=== PATIENT | male | born 1950 | race Hispanic/Latino ===

== ENCOUNTER 2018-03-03 08:26 | Emergency (ER) | payer BC, OTHER ==
[2018-03-03] MEDS ORDERED: NACL 0.9% 1000 ML 1,000 ML IV ONE (09:19)
--- NOTE | 2018-03-03 09:19 | Emergency Department Report ---
ED General Adult HPI - General Chief complaint: Abdominal Pain Stated complaint: ABD PAIN Time Seen by Provider: 03/03/18 09:14 Source: patient, RN notes reviewed Mode of arrival: Ambulatory Limitations: No Limitations - History of Present Illness Initial comments: This is a 68-year-old male. The patient is previously known to this provider. His primary care doctor is Dr. Burroughs. He has a past medical history of hypertension and renal colic. He presents to the ER with a complaint of left lower quadrant pain that radiates to the flank which has been intermittent for about a month. The pain has no exacerbating or relieving factors. Patient denies nausea, vomiting, diarrhea, testicular pain, urinary symptoms. Initially requested Toradol for pain, although Really not having pain. Has not had a colonoscopy at this time. -: Gradual Location: abdomen Radiation: back Quality: aching Consistency: intermittent Improves with: none Worsens with: none Associated Symptoms: other (as per history of present illness). denies: confusion, chest pain, cough, diaphoresis, fever/chills, headaches, loss of appetite, malaise, nausea/vomiting, rash, seizure, shortness of breath, syncope , weakness - Related Data Home Medications Medication Instructions Recorded Confirmed Last Taken Famotidine [Pepcid] 20 mg PO PRN PRN 08/17/14 08/24/14 08/23/14 Tramadol HCl 50 mg PO DAILY PRN 08/17/14 08/24/14 08/23/14 Previous Rx's Medication Instructions Recorded Last Taken Type Acetaminophen [Tylenol Arthritis] 650 mg PO Q6HR PRN #30 tablet.er 03/03/18 Unknown Rx Ibuprofen [Motrin] 600 mg PO Q8H PRN #30 tablet 03/03/18 Unknown Rx Ondansetron [Zofran Odt] 4 mg PO Q8HR PRN #20 tab.rapdis 03/03/18 Unknown Rx Allergies Allergy/AdvReac Type Severity Reaction Status Date / Time Latex, Natural Rubber Allergy Intermediate Rash Verified 08/24/14 18:11 doxycycline AdvReac Unknown Verified 03/03/18 08:40 ED Review of Systems ROS: Stated complaint: ABD PAIN Other details as noted in HPI Comment: as per history of present illness Gastrointestinal: abdominal pain Genitourinary: denies: urgency, dysuria, testicular pain ED Past Medical Hx - Past Medical History Hx Hypertension: No Hx Heart Attack/AMI: No Hx Congestive Heart Failure: No Hx Diabetes: No Hx GERD: Yes Hx Renal Disease: (kidney stones) Hx Seizures: No Hx Asthma: No Hx COPD: No Additional medical history: peptic ulcers - Surgical History Past Surgical History?: Yes Additional Surgical History: C spine - Social History Smoking Status: Current Every Day Smoker Substance Use Type: None - Medications Home Medications: Home Medications Medication Instructions Recorded Confirmed Last Taken Type Famotidine [Pepcid] 20 mg PO PRN PRN 08/17/14 08/24/14 08/23/14 History Tramadol HCl 50 mg PO DAILY PRN 08/17/14 08/24/14 08/23/14 History Acetaminophen [Tylenol Arthritis] 650 mg PO Q6HR PRN #30 tablet.er 03/03/18 Unknown Rx Ibuprofen [Motrin] 600 mg PO Q8H PRN #30 tablet 03/03/18 Unknown Rx Ondansetron [Zofran Odt] 4 mg PO Q8HR PRN #20 tab.rapdis 03/03/18 Unknown Rx ED Physical Exam - General Limitations: No Limitations General appearance: alert, in no apparent distress - Head Head exam: Present: atraumatic, normocephalic - Eye Eye exam: Present: normal appearance, EOMI. Absent: nystagmus - ENT ENT exam: Present: normal exam, normal orophraynx, mucous membranes moist, normal external ear exam - Neck Neck exam: Present: normal inspection, full ROM - Respiratory Respiratory exam: Present: normal lung sounds bilaterally. Absent: respiratory distress - Cardiovascular Cardiovascular Exam: Present: regular rate, normal rhythm, normal heart sounds. Absent: bradycardia, tachycardia, irregular rhythm, systolic murmur, diastolic murmur, rubs, gallop - GI/Abdominal GI/Abdominal exam: Present: soft, normal bowel sounds. Absent: distended, tenderness, guarding, rebound, rigid, pulsatile mass - Rectal Rectal exam: Present: deferred - exam: Present: normal inspection. Absent: testicular tenderness External exam: Present: normal external exam, other (there is no testicular tenderness. There is normal testicular lie bilaterally. There is normal cremasteric reflex bilaterally.). Absent: erythema, swelling - Extremities Exam Extremities exam: Present: normal inspection, full ROM, normal capillary refill. Absent: tenderness, pedal edema, joint swelling, calf tenderness - Back Exam Back exam: Present: normal inspection, full ROM. Absent: tenderness, CVA tenderness (R), paraspinal tenderness, vertebral tenderness - Neurological Exam Neurological exam: Present: alert, oriented X3, CN II-XII intact, normal gait, other (Extraocular movements intact. Tongue midline. No facial droop. Facial sensation intact to light touch in the V1, V2, V3 distribution bilaterally. 5 and 5 strength in 4 extremities.. Sensation is intact to light touch in 4 extremities.). Absent: motor sensory deficit - Psychiatric Psychiatric exam: Present: normal affect, normal mood - Skin Skin exam: Present: warm, dry, intact, normal color. Absent: rash ED Course Vital Signs 03/03/18 08:36 Temperature 97.7 F Pulse Rate 73 Blood Pressure 183/88 O2 Sat by Pulse 98 Oximetry ED Medical Decision Making - Lab Data Result diagrams: 03/03/18 09:00 03/03/18 09:00 Vital Signs 03/03/18 08:36 Temperature 97.7 F Pulse Rate 73 Blood Pressure 183/88 O2 Sat by Pulse 98 Oximetry - Radiology Data Radiology results: report reviewed CT scan of the abdomen and pelvis with IV contrast demonstrates no acute disease , no hydronephrosis, no ureteral stones, incidental kidney stones noted within the kidney parenchyma. - Medical Decision Making Differential diagnosis, including not limited to: Renal colic, hernia, constipation, malignancy, AAA Assessment and plan: 68-year-old male with nontraumatic left lower quadrant pain for one month. He is afebrile with reassuring vital signs with the exception of elevated blood pressure. He has no pulsatile abdominal mass, and a normal testicular exam, and he is reading a book comfortably without difficulty. His urinalysis is unremarkable, and a CT scan of the abdomen and pelvis did not demonstrate any significant disease. His elevated blood pressure is appreciated , please reference the [employer] clinical policy on asymptomatic hypertension. He needs to follow up with an outpatient lightout examiner for colonoscopy, and he is to follow-up with her primary care doctor for his elevated blood pressure. Critical care attestation.: If time is entered above; I have spent that time in minutes in the direct care of this critically ill patient, excluding procedure time. ED Disposition Clinical Impression: Elevated blood pressure reading, Lower abdominal pain Disposition: DC-01 TO HOME OR SELFCARE Is pt being admited?: No Does the pt Need Aspirin: No Condition: Stable Instructions: Abdominal Pain (ED) Additional Instructions: Continue current outpatient medications. The patient takes metformin, do not take metformin for the next 2 days. Take the pain medication, nausea medication as needed/directed. Please note that blood pressure was elevated. Follow-up with a primary care doctor for this within the next month. Long-term complications of hypertension and elevated blood pressure include stroke, heart attack, disability, , paralysis, loss of quality of life. Follow-up with a lightout examiner within the next month to have a colonoscopy scheduled. Not following up as recommended for a colonoscopy may result in undiagnosed tumor, cancer, malignancy. Return to the ER right away with new pain, worsened pain, migration of pain, fevers, chills, lethargy, irritability, projectile vomiting, change in mental status, confusion, inability to tolerate liquid feeds. Dr. Landaverde is a local gastroenterology specialist. Have a primary care doctor contact the medical records department to obtain formal CAT scan interpretation and to follow up on any incidental nonemergent findings. Referrals: KADEN SILVA MD [Primary Care Provider] - 3-5 Days SONNY ZEE MD [Staff Physician] - 3-5 Days ELSY LANDAVERDE MD [Staff Physician] - 3-5 Days
[2018-03-03 09:30] LABS: Basophils % (Auto) 0.1 % (0.0-1.8); Eosinophils # (Auto) 0.2 K/mm3 (0.0-0.4); Eosinophils % (Auto) 2.5 % (0.0-4.3); Hemoglobin 17.2 gm/dl (11.8-15.2); Lymphocytes % (Auto) 31.6 % (13.4-35.0); Mean Corpuscular HGB Conc 34 % (32-34); Mean Corpuscular Hemoglobin 31 pg (28-32); Mean Corpuscular Volume 92 fl (84-94); Monocytes # (Auto) 0.6 K/mm3 (0.0-0.8); Monocytes % (Auto) 5.9 % (0.0-7.3); Platelet Count 233 K/mm3 (140-440); Red Blood Count 5.58 M/mm3 (3.65-5.03); Red Cell Distribution Width 13.7 % (13.2-15.2)
[2018-03-03 09:34] LABS: Bacteria,Urine 1+ /HPF (Negative); Bilirubin,Urine NEG (Negative); Blood,Urine NEG (Negative); Color,Urine Yellow (Yellow); Mucus,Urine 2+ /HPF; Protein,Urine <15 mg/dL mg/dL (Negative); Urobilinogen,Urine < 2.0 mg/dL (<2.0)
[2018-03-03 09:37] LABS: Alanine Aminotransferase 46 units/L (7-56); Albumin 3.8 g/dL (3.9-5); BUN/Creatinine Ratio 19; Blood Urea Nitrogen 15 mg/dL (9-20); Calcium 9.3 mg/dL (8.4-10.2); Hemolysis Index 37
[2018-03-03] MEDS ORDERED: TORADOL ONE (11:24)
[2018-03-03] MEDS ORDERED: TORADOL IV ONE (11:25)
[2018-03-03 11:34] VITALS: BP 197/90
--- NOTE | 2018-03-06 13:02 | Cat Scan Report ---
CT ABDOMEN PELVIS WITH CONTRAST: HISTORY: Left lower quadrant pain, left flank pain. COMPARISON: none. TECHNIQUE: Helical CT in 1.25mm intervals following IV contrast. Sagittal and coronal reconstructions. FINDINGS: Lung bases: Adequately aerated. Mild emphysematous changes are suspected. Liver: Mild fatty infiltration. No enlargement, surface nodularity or focal lesion. Biliary system: Normal. Pancreas: Normal. Spleen: Normal. Kidneys/ureters/bladder: There are multiple nonobstructing calyceal stones in both kidneys. No ureteral stones or hydronephrosis. Scattered simple renal cysts are also noted. The bladder is unremarkable. The prostate gland is borderline enlarged. Adrenal glands: Normal. Aorta: Moderate diffuse plaques with mild narrowing distally estimated at 50%. Intestines: Unremarkable. Appendix: Normal. Pelvic viscera: Normal. Ascites: None. Adenopathy: None. Musculoskeletal: Intact. No fracture or bony lesion identified. IMPRESSION: Bilateral nephrolithiasis, nonobstructing. Simple bilateral renal cysts. Moderate atherosclerotic disease in the distal aorta. No acute inflammatory process is appreciated.
== END 2018-03-03 11:44 | disposition home or self-care (01) ==
LOC: ED 08:26
DX: R10.32 Left lower quadrant pain (principal); R03.0 Elevated blood-pressure reading, without diagnosis of hypertension; F17.200 Nicotine dependence, unspecified, uncomplicated; K21.9 Gastro-esophageal reflux disease without esophagitis; Z79.899 Other long term (current) drug therapy; Z88.6 Allergy status to analgesic agent; Z91.040 Latex allergy status; Z91.048 Other nonmedicinal substance allergy status; Z87.442 Personal history of urinary calculi
CPT/HCPCS: 36415; 74177; 80053; 81001; 85025; 96374; 99284; J1885; J7030; Q9967; 96361